=== PATIENT | female | born 1990 | race Caucasian/White ===

== ENCOUNTER → 2017-10-29 14:09 | Outpatient (CLI) | payer BC | END | disposition home or self-care (01) | LOC: D.US 14:09 | DX: O26.841 Uterine size-date discrepancy, first trimester (principal); Z3A.14 14 weeks gestation of pregnancy ==

== ENCOUNTER → 2017-11-14 10:23 | Outpatient (CLI) | payer BC | END | disposition home or self-care (01) | LOC: D.US 10:23 | DX: O26.841 Uterine size-date discrepancy, first trimester (principal); Z3A.14 14 weeks gestation of pregnancy ==

== ENCOUNTER → 2017-12-12 11:48 | Outpatient (CLI) | payer BC | END | disposition home or self-care (01) | LOC: D.US 11:30 | DX: O26.842 Uterine size-date discrepancy, second trimester (principal); Z3A.23 23 weeks gestation of pregnancy ==

== ENCOUNTER → 2018-04-28 11:30 | Outpatient (CLI) | payer BC | END | disposition home or self-care (01) | LOC: D.US 11:30 | DX: Z34.83 Encounter for supervision of other normal pregnancy, third trimester (principal); Z3A.36 36 weeks gestation of pregnancy ==